=== PATIENT | female | born 2005 | race Two or more races ===

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

== ENCOUNTER 2025-03-14 12:34 | Inpatient (IN) | payer OTHER ==
[~2025-03-14] VITALS: Ht 162.6 cm; Wt 102.5 kg
[2025-03-14 12:36] VITALS: BP 125/68; BP 132/82
[2025-03-14] MEDS ORDERED: INTEGRA CAPSUL1 EACH PO (12:59)
[2025-03-14] MEDS ORDERED: PRENATAL TABLE1 EAC1 PO (12:59)
[2025-03-14 14:12] LABS: BASO % 0.3 % (0.1-1.2); EOS # 0.08 (0.04-0.54); EOS % 0.9 % (0.7-7.0); LYMPH # 2.33 (1.18-3.74); LYMPH % 25.9 % (19.3-53.1); MEAN PLATELET VOLUME 12.00 fl (9.4-12.4); MONO # 0.77 (0.24-0.82); MONO % 8.5 % (4.7-12.5); NEUT # 5.76 (1.56-6.13); NEUT % 64.0 % (34.0-71.1); RED CELL DISTRIBUTION WIDTH 18.9 % (11.6-14.4)
[2025-03-14 14:44] LABS: ALT/SGPT 12.0 U/L (12-78); AST/SGOT 15.0 U/L (15-37); BILIRUBIN TOTAL 0.64 mg/dL (0.3-1.2); BUN CREA RATIO 10.0 (7.0-25.0); CREATININE SERUM 0.63 mg/dL (0.55-1.02); GFR 119.29; GLOBULINA 3.6 G/DL (2.4-3.5); GLUCOSE FASTING 91.0 mg/dL (65-100); OSMOLALITY SERUM 280.0 MOSM/KG (275-295)
[2025-03-14 14:57] LABS: INR 0.98
[2025-03-14 15:07] VITALS: BP 136/75
[2025-03-14] MEDS ORDERED: MISOPROSTOL 25 MCG TABLET VAG ONE (17:15)
[2025-03-14 19:54] VITALS: BP 133/62
[2025-03-14 23:29] VITALS: BP 138/74
[2025-03-15 03:29] VITALS: BP 133/67
[2025-03-15 05:30] VITALS: BP 118/75
[2025-03-15] MEDS ORDERED: MORPHINE SULFATE 4 MG/ML CARTRIDGE IV ONE (05:45)
[2025-03-15] MEDS ORDERED: OXYTOCIN 500 ML IV ONE (06:30)
[2025-03-15 07:45] VITALS: BP 113/57
[2025-03-15] MEDS ORDERED: CEFAZOLIN SODIUM 1,000 MG VIAL IV ONE (10:30)
[2025-03-15] MEDS ORDERED: CITRIC ACID/SODIUM CITRATE 30 ML BLIST.PACK PO ONE (10:45)
[2025-03-15] MEDS ORDERED: OXYTOCIN 10 UNITS/ML VIAL IV ONE (12:30)
[2025-03-15] MEDS ORDERED: ERYTHROMYCIN BASE OPHT 1GM EACH TUBE OP ONE (12:30)
[2025-03-15] MEDS ORDERED: OXYTOCIN 1,000 ML IV SCH (14:45)
[2025-03-15] MEDS ORDERED: MORPHINE SULFATE 4 MG/ML CARTRIDGE IV PRN (14:45)
[2025-03-15 17:50] VITALS: BP 120/69
[2025-03-15] MEDS ORDERED: KETOROLAC TROMETHAMINE 30 MG VIAL IV SCH (18:00)
[2025-03-15] MEDS ORDERED: ACETAMINOPHEN 325 MG TABLET PO SCH (18:00)
[2025-03-16] VITALS: BP 103/56
[2025-03-16 08:00] VITALS: BP 101/63
[2025-03-16 16:29] VITALS: BP 119/75
[2025-03-17 00:15] VITALS: BP 112/66
[2025-03-17] MEDS ORDERED: OxyCODONE HCL 5 MG TABLET (ROXICODONE) PO PRN (06:00)
[2025-03-17 08:46] VITALS: BP 114/64
== END 2025-03-17 17:05 | disposition home or self-care (01) | DRG 788 ==
LOC: LDR 12:34 → O/R 03-15 13:21 → OB/GYN 03-15 15:28
PROVIDERS: ADMIT Obstetrics & Gynecology; ATTEND Obstetrics & Gynecology
PROC: 3E0P7VZ Introduction of Hormone into Female Reproductive, Via Natural or Artificial Opening (ICD-10-PCS; 2025-03-14)
PROC: 4A1HXCZ Monitoring of Products of Conception, Cardiac Rate, External Approach (ICD-10-PCS; 2025-03-14)
PROC: 3E033VJ Introduction of Other Hormone into Peripheral Vein, Percutaneous Approach (ICD-10-PCS; 2025-03-15)
PROC: 10D00Z1 Extraction of Products of Conception, Low, Open Approach (ICD-10-PCS; principal; 2025-03-15 13:30)
DX: O82 Encounter for cesarean delivery without indication (principal); O62.1 Secondary uterine inertia; Z3A.39 39 weeks gestation of pregnancy; Z37.0 Single live birth

== ENCOUNTER 2025-03-21 14:04 | Emergency (ER) | payer OTHER ==
[~2025-03-21] VITALS: Ht 162.6 cm; Wt 96.2 kg
[~2025-03-21 14:04] MED LIST: INTEGRA CAPSUL1 EACH PO; PRENATAL TABLE1 EAC1 PO
[2025-03-21 15:33] VITALS: BP 126/82; O2SAT 100
[2025-03-21] MEDS ORDERED: ONDANSETRON HCL 2 MG/ML VIAL ONE (17:57)
[2025-03-21] MEDS ORDERED: ACETAMINOPHEN 500 MG GEL..CAP PO ONE ×2 (17:58→18:00)
[2025-03-21] MEDS ORDERED: FAMOTIDINE/PF 20 MG/2 ML VIAL ONE (17:58)
[2025-03-21] MEDS ORDERED: FAMOTIDINE/PF 20 MG in 0.9 % SODIUM CHLORIDE 8 ML IV PUSH ONE (18:00)
[2025-03-21] MEDS ORDERED: 0.9 % SODIUM CHLORIDE 1,000 ML IV SCH (18:00)
[2025-03-21] MEDS ORDERED: ONDANSETRON HCL 4 MG in 0.9 % SODIUM CHLORIDE 50 ML IV ONE (18:00)
[2025-03-21 18:31] LABS: BASO % 0.3 % (0.1-1.2); EOS # 0.02 (0.04-0.54); EOS % 0.3 % (0.7-7.0); LYMPH # 1.62 (1.18-3.74); LYMPH % 23.8 % (19.3-53.1); MEAN PLATELET VOLUME 9.80 fl (9.4-12.4); MONO # 0.59 (0.24-0.82); MONO % 8.7 % (4.7-12.5); NEUT # 4.52 (1.56-6.13); NEUT % 66.5 % (34.0-71.1); RED CELL DISTRIBUTION WIDTH 19.0 % (11.6-14.4)
[2025-03-21 18:59] LABS: INR 1.07
[2025-03-21 19:09] LABS: ALT/SGPT 24.0 U/L (12-78); AST/SGOT 19.0 U/L (15-37); BILIRUBIN TOTAL 0.5 mg/dL (0.3-1.2); BUN CREA RATIO 13.0 (7.0-25.0); CREATININE SERUM 0.95 mg/dL (0.55-1.02); GFR 74.26; GLOBULINA 3.9 G/DL (2.4-3.5); GLUCOSE FASTING 89.0 mg/dL (65-100); OSMOLALITY SERUM 290.0 MOSM/KG (275-295)
[2025-03-21 19:41] LABS: COVID-19 AG NEGATIVE (NEGATIVE)
[2025-03-21 19:42] LABS: ERYTHROCYTE SEDIMENTATION RATE 48 mm/hr (0-20)
[2025-03-21 19:58] LABS: URINE APPEARANCE Clear; URINE BILIRRUBIN Negative (NEGATIVE); URINE BLOOD Small; URINE COLOR Yellow; URINE GLUCOSE Negative (NEGATIVE); URINE KETONE Negative (NEGATIVE); URINE LEUKOCYTE Negative; URINE NITRATE Negative; URINE PROTEIN Negative (NEGATIVE); URINE UROBILINOGEN 0.2 E.U./dl
[2025-03-21 20:02] LABS: URINE BACTERIA 304.6 uL (0.0-1933); URINE EPITHELIAL CELLS 17.9 uL (0.0-38.8); URINE RBC 4.6 uL (0.0-20.8); URINE WBC 11.2 uL (0.0-23.2)
[2025-03-21 20:05] LABS: URINE CAST 0.87 uL (0.0-1.40)
[2025-03-21] MEDS ORDERED: CEPHALEXIN500 MG PO (22:35)
[2025-03-21] MEDS ORDERED: PEPCID AC20 MG PO (22:35)
[2025-03-21] MEDS ORDERED: CLEOCIN HCL300 MG PO (22:35)
[2025-03-21] MEDS ORDERED: INTESTINEX680 M1 PO (22:35)
== END 2025-03-21 23:19 | disposition home or self-care (01) ==
LOC: ER 14:04
PROVIDERS: General Practice
DX: R50.9 Fever, unspecified (principal); E16.1 Other hypoglycemia; Z98.890 Other specified postprocedural states; Z20.822 Contact with and (suspected) exposure to COVID-19